=== PATIENT | female | born 1990 | race Caucasian/White ===

== ENCOUNTER 2025-03-03 12:54 | Outpatient (AMB) | payer OTHER, SELFPAY ==
--- NOTE | 2025-03-03 13:08 | A.OFFVIS_ITS ---
VS Expanded 03/03/25 13:22 BP 132/82 Blood Pressure Location Rt brachial Blood Pressure Position Sitting Pulse 86 Pulse Source Pulse Oximeter Temp 97.7 F Temperature Source Temporal Artery Scan Pulse Oximetry 97 Oxygen Delivery Method Room Air Height 5 ft 1 in Weight 192 lb 6.4 oz BMI 36.3 Body Fat % 41.6 Body Fat Mass 80.0 Fat Free Mass 112.2 Visceral Fat Rating 9.0 Body Water % 41.9 Body Water Mass 80.4 Muscle Mass/Score 106.4 Basal Metabolic Rate/Score 1,580 Intake Visit Reasons: OV POST OP-GASTRIC SLEEVE *see comments* Service Desk Manager Required: No Allergies No Known Allergies Allergy (Verified 03/03/25 13:12) Medication List - Last Reconciled 03/03/25 by IDALIA Hughes betamethasone dipropionate 0.05% appl topical HPI Comments Details: 35-year-old female presents to the office today with a history of reported gastric sleeve performed in [place] in March or April 2022. She does not remember the name of the physician who performed the surgery and does not have records. She will attempt to obtain records although as mentioned above this was performed in [place]. She had last follow-up postoperatively approximately 18 months ago with a dietitian in [place] and has not been seen by anybody here in the [place]. She states that her highest weight was 235 lb and lowest weight postoperatively was 165 lb Weight today is 192.4 lb with a BMI of 36.3. Meal plan: none BF skip mid morning skip lunch sandwich fruit dinner potatoes and steak or soup after dinner chips, candy, ice cream, chocolate Exercise plan: none Biogenic Reagents gym membership [facility] Surgical History S/P gastric sleeve procedure Family History Mother Hypertension Father Heart rate problem Daughter No problems noted. Son No problems noted. Social History Alcohol intake: never Patient Tobacco Use Status: Never used Tobacco Physical Exam Const General: cooperative and no acute distress Orientation/consciousness: patient oriented x3 Resp Effort & Inspection: normal respiratory effort Auscultation: clear to auscultation bilaterally Cardio Rate: regular rate Rhythm: regular rhythm GI Inspection: Yes normal to inspection and Yes incision (well healed) Palpation (GI): Soft to palpation and no masses Neuro General: patient oriented x3 Assessment & Plan Assessment & Plan (1) S/P gastric sleeve procedure: Comment: 04/2022 in [place] Code(s): Z90.3 - Acquired absence of stomach [part of] Category: Surgical Plan: Patient is a pleasant 35-year-old female who is proximally 2 years 10 months post sleeve gastrectomy performed in [place]. She has not followed up in 18 months. She is looking for guidance. She was given information regarding the right BMI elliott. we went over the importance of adherence to a strict meal plan and exercise plan. Goal of burning 300 calories per day 7 days per week on cardio equipment. Additionally, she has not had any labs done and we will check a full postop lab panel. She was given my cell phone so she may communicate with me between appointments. Encouraged to text weight weekly and text with any questions or concerns. We will have her follow-up in 4-6 weeks. Orders: Orders Hemoglobin A1c Today E66.9 - Obesity, unspecified, G62.9 - Polyneuropathy, unspecified, Z90.3 - Acquired absence of stomach [part of] Complete Blood Count Auto Diff Today E66.9 - Obesity, unspecified, G62.9 - Polyneuropathy, unspecified, Z90.3 - Acquired absence of stomach [part of] Lipid Panel Today E66.9 - Obesity, unspecified, G62.9 - Polyneuropathy, unspecified, Z90.3 - Acquired absence of stomach [part of] IRON PROFILE Today E66.9 - Obesity, unspecified, G62.9 - Polyneuropathy, unspecified, Z90.3 - Acquired absence of stomach [part of] Vitamin B12 and Folate Today E66.9 - Obesity, unspecified, G62.9 - Polyneuropathy, unspecified, Z90.3 - Acquired absence of stomach [part of] Vitamin B1 Today E66.9 - Obesity, unspecified, G62.9 - Polyneuropathy, unspecified, Z90.3 - Acquired absence of stomach [part of] TSH reflex Free T4 Today E66.9 - Obesity, unspecified, G62.9 - Polyneuropathy, unspecified, Z90.3 - Acquired absence of stomach [part of] Ferritin Today E66.9 - Obesity, unspecified, G62.9 - Polyneuropathy, unspecified, Z90.3 - Acquired absence of stomach [part of] Vitamin D 25-OH Total Today E66.9 - Obesity, unspecified, G62.9 - Polyneuropathy, unspecified, Z90.3 - Acquired absence of stomach [part of] Insulin Today E66.9 - Obesity, unspecified, G62.9 - Polyneuropathy, unspecified, Z90.3 - Acquired absence of stomach [part of] Comprehensive Met. Panel Today E66.9 - Obesity, unspecified, G62.9 - Polyneuropathy, unspecified, Z90.3 - Acquired absence of stomach [part of] Zinc Today E66.9 - Obesity, unspecified, G62.9 - Polyneuropathy, unspecified, Z90.3 - Acquired absence of stomach [part of] C Reactive Protein Today E66.9 - Obesity, unspecified, G62.9 - Polyneuropathy, unspecified, Z90.3 - Acquired absence of stomach [part of] Vitamin A Today E66.9 - Obesity, unspecified, G62.9 - Polyneuropathy, unspecified, Z90.3 - Acquired absence of stomach [part of]
[2025-03-03 13:22] VITALS: BP 132/82; PULSE 86; TEMP 36.5; O2SAT 97; BMI 36.3
--- OUTSIDE RECORDS SUMMARY | 2025-03-03 14:04 | XMS_ITS | Clinical Summary ---
Author Organization [facility] Address [address] [place] [address] Phone Care Team Providers Care [employer] Name Role Phone Gloria Yadav MD Primary Care Provider Allergies No known active allergies Medications betamethasone dipropionate (DIPROSONE) 0.05 % creamIndications :Dermatitis, unspecified APPLY TO AFFECTED AREA TWICE DAILY NEEDED FOR ITCH 30 g 4 4 Active copper (ParaGard T 380A) 380 square mm IUD 1 Device by Intrauterine route Once. 4 034 Active clobetasoL 0.05 % shampooIndicatio ns:Eczema of scalp Apply 10 mL topically three times a week. 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 Overview (10/27/2024): Latent tb- saw tb clinic- was having follow up labs and possible tx 2019 Eczema 05/09/2017 Encounters Date Type Department Care Team Description 01/27/2025 8:30 AM EDT Office Visit Adult Medicine [address] [phone] Gloria Yadav MD Eczema of scalp (Primary Dx); Obesity (BMI 30-39.9); H/O bariatric surgery from Last 3 Months Immunizations Name Administration Dates Next Due Hepatitis B (Mvvteqv-Z-Rdnyc , Recombivax HB-Adult) 19yo and older 02/13/2014 Influenza trivalent, 0.5mL, preservative free (Fluarix; FluLaval; Fluzone) ages 6mo and older (Afluria) 3 years and older 09/12/2021,09/06/2020,07/24/2013 Influenza, Unspecified 06/25/2020 Measles 02/13/2014 Meningococcal Vaccine Of Unk nown Formulation And Unknown Serogroups 03/09/2017,02/23/2017,02/16/2017,02/02,01/26/2017,01/12/2017,01/04/2017 ,12/28/2016 Mumps 02/13/2014 PPD Test 07/12/2015,06/28/2015 Rubella 02/13/2014,09/16/2013 Tdap Tetanus diptheria acell ular pertussis (Boostrix; Adacel) 7yo and older 03/09/2017,07/24/2013 Varicella live (Varivax) 12m o and older 02/13/2014,09/16/2013 Surgical History Surgery Date Site/Laterality Comments EYE SURGERY PROCEDURE: HISTORICAL EYE SURGERY; COMMENT: lasik BARIATRIC SURGERY PROCEDURE: MD LAPS GSTRC RSTRICTIV PX LONGITUDINAL GASTRECTOMY; COMMENT: GASTRIC SLEEVE 2021 Family History Medical History Relation Name Comments No Known Problems Brother No Known Problems Daughter Coronary artery disease Father CABG x 4 Other: lipids Father Hypertension Maternal Grandmother Other: hyperlipidemia Mother No Known Problems Sister No Known Problems Son Relation Name Status Comments Brother Alive Daughter Alive Father Maternal Grandfather Alive Maternal Grandmother Mother Alive Paternal Grandfather Paternal Grandmother Sister Alive Son Alive Social History Tobacco Use Types Packs/Day Years Used Date Smoking Tobacco: Never Smokeless Tobacco: Never Tobacco Cessation:Counseling Given: Not Answered Alcohol Use Standard Drinks/Week Comments No 0 (1 standard drink = 0.6 oz pur e alcohol) Comments No Sex and Gender Information Value Date Recorded Sex Assigned at Female 11/18/2024 10:49 AM EST Legal Sex Female 8:19 PM EST Gender Identity Female 11/18/2024 10:49 AM EST Sexual Orientation Choose not to disclose 2024 10:49 AM EST Obstetrics History Last Filed Vital Signs Vital Sign Reading Time Taken Comments Blood Pressure 98/62 01/27/2025 8:27 AM EDT Pulse 75 01/27/2025 8:27 AM EDT Temperature 36.6 ??C (97.8 ??F) 01/27/2025 8:27 AM ED T Respiratory Rate 16 01/27/2025 8:27 AM EDT Oxygen Saturation - - Inhaled Oxygen Concentration - - Weight 86.6 kg (191 lb) 01/27/2025 8:27 AM EDT Height 150 cm (4' 11.06 ) 01/27/2025 8:27 AM EDT Body Mass Index 38.51 01/27/2025 8:27 AM EDT Plan of Treatment Upcoming Encounters Date Type Department Care Team (Late st Contact Info) Description 03/16/2025 2:45 PM EDT Appointment [facility] Neurodiagnostic [address] [place] [phone] 07/30/2025 9:00 AM EDT Office Visit Adult Medicine - [place] [address] [place] [phone] Ryan Bernard PA [address] [place] [phone] Health Maintenance Due Date Last Done Comments Hepatitis B Vaccines (2 of 3 - 19+ 3-dose series) 03/13/2014 02/13/2014 Social Influencers of Health Screening 09/30/2022 COVID-19 Vaccine ( season) 2024 07/17/2022, 06/24/2021 Depression Screening 06/19/2025 06/19/2024 Influenza Vaccine (Season Ended) 2025 09/12/2021, 09/06/2020, 06/25/2020, Additional history exists DTaP,Tdap,and Td Vaccines (3 - Td or Tdap) 03/09/2027 03/09/2017, 07/24/2013 Cervical Cancer Screening: HPV 03/10/2027 03/10/2022 Cholesterol Screening (Lipid Panel) 06/19/2029 06/19/2024, 06/19/2024 Varicella Vaccines Aged Out 02/13/2014, 09/16/2013 No longer eligible based on patient's age to complete this topic HIV Screening Completed 03/10/2022 Hepatitis C Screening Completed 03/10/2022 HIB Vaccines Aged Out No longer eligi ble based on patient's age to complete this topic HPV Vaccines Aged Out No longer eligi ble based on patient's age to complete this topic Hepatitis A Vaccines Aged Out No long er eligible based on patient's age to complete this topic IPV Vaccines Aged Out No longer eligi ble based on patient's age to complete this topic MMR Vaccines Aged Out No longer eligi ble based on patient's age to complete this topic Meningococcal ACWY Vaccine Aged Out N o longer eligible based on patient's age to complete this topic Meningococcal B Vaccine Aged Out No l onger eligible based on patient's age to complete this topic Pneumococcal Vaccine: Pediatrics (0 to 5 Years) and At-Risk Patients (6 to 64 Years) Aged Out No longer eligible based on patient's age to complete this topic RSV Immunization Patients Under 20 months Aged Out No longer eligible based on patient's age to complete this topic Procedures Procedure Name Priority Date/Time Associated Diagnosis Comments DEPRESSION SCREENING Routine 06/19/2024 LIPID PANEL Routine 06/19/2024 HPV Routine 03/10/2022 HEPATITIS C SCREENING Routine 03/10/2022 HIV SCREENING Routine 03/10/2022 from Last 3 Months or Most Recently Relevant to Health Maintenance Results * Depression Screening (06/19/2024) Pathologist [facility] Depression Screening abstracted Historical Provider HEALTH MAINTENANCE Final Result * Lipid panel (06/19/2024) LDL/HDL Ratio 3 0 - 4 Triglycerides 115 0 - 150 mg/dL Cholesterol 173 0 - 200 mg/dL HDL 66 >=40 mg/dL LDL Cholesterol 84 0 - 100 mg/dL Blood Venous blood specimen / Unknown Historical Provider LAB BLOOD ORDERABLES [place] Result * Cervical Cancer Screening: HPV (03/10/2022) Cervical Cancer Screening: HPV negative, abstracted Historical Provider HEALTH MAINTENANCE Final Result * HIV Screening (03/10/2022) Pathologist [facility] HIV Screening abstracted Historical Provider HEALTH MAINTENANCE Final Result * Hepatitis C Screening (03/10/2022) Pathologist [facility] Hepatitis C Screening abstracted Historical Provider HEALTH MAINTENANCE Final Result from Last 3 Months or Most Recently Relevant to Health Maintenance Insurance [facility] [employer] Care Teams [employer] Football Coach Relationship Specialty Start Date End Date Gloria Yadav MD [address] [place] [phone] PCP - General Internal Medicine 01/03/22
== END 2025-03-03 13:50 | disposition home or self-care (01) ==
LOC: HO.HBS 12:55
PROVIDERS: PCP Family Medicine; Visit Provider Physician Assistant Surgical
DX: E66.9 Obesity, unspecified (principal); E66.812 Obesity, class 2; Z68.36 Body mass index [BMI] 36.0-36.9, adult; Z90.3 Acquired absence of stomach [part of]; Z98.84 Bariatric surgery status
CPT/HCPCS: 99204; G2211

== ENCOUNTER → 2025-03-03 12:54 | Outpatient (BNVA) | payer OTHER, SELFPAY | PROVIDERS: PCP Family Medicine; Visit Provider Physician Assistant Surgical | DX: Z90.3 Acquired absence of stomach [part of] (principal) | CPT/HCPCS: 99202 ==